=== PATIENT | male | born 1990 | race Two or more races ===

== ENCOUNTER 2023-08-31 01:02 | Emergency (ER) | payer OTHER ==
[~2023-08-31] VITALS: Ht 182.9 cm; Wt 88.6 kg
[~2023-08-31 01:02] MED LIST: BUPR150T12 PO
[2023-08-31] MEDS: NS 1,000 ML IV ONE ×2 (01:35→09:50)
[2023-08-31] MEDS: LORazepam 2 MG/ML 1ML VIAL IV STA ×2 (01:35→02:56)
[2023-08-31 01:57] LABS: BASO # 0.1 10^3/uL (0.0-0.2); BASO % 0.4 % (0.0-1.0); EOS % 0.2 % (0.0-3.0); HEMATOCRIT 50.8 % (42.0-52.0); HEMOGLOBIN 17.4 g/dl (13.5-17.5); LYMPH # 3.7 10^3/uL (1.5-5.0); LYMPH % 31.6 % (24.0-44.0); MEAN CORPUSCULAR HEMOGLOBIN 30.6 pg (27.0-33.0); MEAN CORPUSCULAR HGB CONC 34.3 g/dl (32.0-36.5); MEAN CORPUSCULAR VOLUME 89.3 fl (80.0-96.0); MONO # 0.7 10^3/uL (0.0-0.8); MONO % 5.6 % (2.0-8.0); NEUTROPHILS # 7.2 10^3/uL (1.5-8.5); NEUTROPHILS % 61.8 % (36.0-66.0); PLATELET COUNT, AUTOMATED 256 10^3/uL (150-450); RED BLOOD COUNT 5.69 10^6/uL (4.30-6.10); WHITE BLOOD COUNT 11.7 10^3/uL (4.0-10.0)
[2023-08-31 02:20] LABS: AMPHETAMINES LEVEL URINE NEGATIVE (NEGATIVE); BARBITURATES URINE NEGATIVE (NEGATIVE); BENZODIAZEPINES URINE NEGATIVE (NEGATIVE); CANNABINOIDS URINE NEGATIVE (NEGATIVE); COCAINE METABOLITE URINE NEGATIVE (NEGATIVE); METHADONE URINE NEGATIVE (NEGATIVE); OPIATES URINE NEGATIVE (NEGATIVE); PHENCYCLIDINE URINE NEGATIVE (NEGATIVE)
[2023-08-31 02:24] LABS: ALBUMIN 4.7 G/DL (3.2-5.2); ALKALINE PHOSPHATASE 118 U/L (46-116); ALT/SGPT 32 U/L (7.0-40); AST/SGOT 32 U/L (<34); BILIRUBIN,DIRECT < 0.1 MG/DL (<0.4); BILIRUBIN,TOTAL 0.2 MG/DL (0.3-1.2); BLOOD UREA NITROGEN 12 MG/DL (9-23); CALCIUM LEVEL 9.2 MG/DL (8.5-10.1); CARBON DIOXIDE LEVEL 24 MMOL/L (20-31); CHLORIDE LEVEL 109 MMOL/L (98-107); CREATININE FOR GFR 0.84 MG/DL (0.70-1.30); GLOMERULAR FILTRATION RATE > 60.0 (>60); GLUCOSE, FASTING 109 MG/DL (60-100); POTASSIUM SERUM 4.6 MMOL/L (3.5-5.1); SALICYLATE LEVEL < 3.0 MG/DL (<30); SODIUM LEVEL 143 MMOL/L (136-145); TOTAL PROTEIN 8.1 G/DL (5.7-8.2)
[2023-08-31 02:26] LABS: THYROID STIMULATING HORMONE 0.855 uIU/ML (0.55-4.78)
[2023-08-31 02:27] LABS: RSV AMPLIFICATION NEGATIVE (NEGATIVE)
[2023-08-31 02:33] LABS: CPK CREATINE PHOSPHOKINASE 390 U/L (46-171); ETHYL ALCOHOL (ETHANOL) 0.452 % (0.000-0.010)
[2023-08-31] MEDS: diphenhydrAMINE 50MG/ML VIAL IM ONE (03:30)
[2023-08-31] MEDS: LORazepam 2 MG/ML 1ML VIAL IM ONE (03:30)
[2023-08-31] MEDS: HALOPERIDOL 5MG/ML 1ML VIAL IM ONE (03:30)
[2023-08-31] MEDS: LORazepam 2 MG TAB PO PRN (09:24)
[2023-08-31] MEDS: FOLIC ACID 1MG TAB PO SCH (09:24)
[2023-08-31] MEDS: THIAMINE 100 MG TAB PO SCH (09:24)
[2023-08-31] MEDS: MULTIVITAMINS/MINERALS THERAP 1 TAB PO SCH (09:24)
[2023-08-31] MEDS ORDERED: HOME MED LIST COMPLETE! XX SCH (10:45)
[2023-08-31 11:00] VITALS: O2SAT 93
[2023-08-31 11:05] VITALS: BP 149/62
[2023-08-31 11:19] VITALS: TEMP 98.8
[2023-08-31] MEDS ORDERED: THIAMINE 100 MG TAB PO SCH (21:00)
[2023-09-01] MEDS ORDERED: FOLIC ACID 1MG TAB PO SCH (09:00)
[2023-09-01] MEDS ORDERED: MULTIVITAMINS/MINERALS THERAP 1 TAB PO SCH (09:00)
== END 2023-08-31 11:20 | disposition home or self-care (01) ==
LOC: M ED 01:02
DX: F10.129 Alcohol abuse with intoxication, unspecified (principal); I45.10 Unspecified right bundle-branch block; R00.0 Tachycardia, unspecified; Z79.899 Other long term (current) drug therapy
CPT/HCPCS: 80048; 80076; 80143; 80307; 82077; 82550; 84443; 85025; 87631; 93005; 93041; 94760; 96361; 96374; 96375; 99285; J2060

== ENCOUNTER 2023-09-05 09:46 | Day surgery (SDC) | payer OTHER ==
[~2023-09-05] VITALS: Ht 182.9 cm; Wt 91.6 kg
[2023-09-05] MEDS ORDERED: SUGAMMADEX SODIUM 500 MG/5 ML VIAL (BRIDION) As Ordered ONE (09:58)
[2023-09-05] MEDS ORDERED: propofoL 200 MG/20 ML VIAL As Ordered ONE (09:58)
[2023-09-05] MEDS ORDERED: MIDAZOLAM INJ 2MG/2ML VIAL As Ordered ONE (09:58)
[2023-09-05] MEDS ORDERED: ROCURONIUM BROMIDE 50MG/5ML VIAL As Ordered ONE (09:58)
[2023-09-05] MEDS ORDERED: LIDOCAINE 2% 100MG/5ML SDV (FOR ANES.) As Ordered ONE (09:58)
[2023-09-05] MEDS ORDERED: ONDANSETRON 4MG 2ML VIAL As Ordered ONE (09:58)
[2023-09-05] MEDS ORDERED: fentaNYL 100 MCG/2 ML INJECTION As Ordered ONE (09:58)
[2023-09-05] MEDS ORDERED: KETOROLAC 60MG 2ML VIAL As Ordered ONE (09:58)
[2023-09-05] MEDS: LR 1,000 ML IV SCH (10:30)
[2023-09-05] MEDS: ceFAZolin SOD 2 GM in IV 1 EA IV ONE (10:45)
[2023-09-05] MEDS: HEPARIN SOD (PORCINE) 5000UNITS/ML 1ML VIAL/SYRINGE SQ ONE (10:55)
[2023-09-05] MEDS ORDERED: HYDROmorphone HCL 2MG/ML 1ML VIAL As Ordered ONE (10:56)
[2023-09-05] MEDS ORDERED: ESMOLOL INJ 100MG/10ML VIAL As Ordered ONE (10:58)
[2023-09-05] MEDS ORDERED: KETAMINE HCL 200MG/20ML VIAL As Ordered ONE (10:59)
[2023-09-05] MEDS ORDERED: NITROGLYCERIN 2% OINT 1 GM *U/D* PKT As Ordered ONE (11:22)
[2023-09-05] MEDS ORDERED: fentaNYL 100 MCG/2 ML INJECTION IV PRN (13:20)
[2023-09-05] MEDS ORDERED: ONDANSETRON 4MG 2ML VIAL IV PRN (13:20)
[2023-09-05] MEDS ORDERED: LR 1,000 ML IV SCH (13:20)
[2023-09-05] MEDS: HYDROMORPHONE HCL 0.5 MG/ 0.5 ML SYRINGE IV PRN (13:37)
[2023-09-05] MEDS: oxyCODONE 5MG TAB PO PRN (13:38)
[2023-09-05] MEDS ORDERED: KETOROLAC 30 MG/ML 1ML VIAL As Ordered ONE (14:03)
[2023-09-05] MEDS: KETOROLAC 30 MG/ML 1ML VIAL IV ONE (14:04)
[2023-09-05] MEDS: ACETAMINOPHEN *IV* 1,000 MG in IV 1 EA IV ONE (14:11)
[2023-09-05 15:50] VITALS: BP 144/73; TEMP 97; O2SAT 96
== END 2023-09-05 16:37 | disposition home or self-care (01) ==
LOC: M SDC 09:46
PROVIDERS: ATTEND Surgery
DX: K40.20 Bilateral inguinal hernia, without obstruction or gangrene, not specified as recurrent (principal); Z79.899 Other long term (current) drug therapy; J45.909 Unspecified asthma, uncomplicated
CPT/HCPCS: 36415; 49650; 82077; C1781; G0480; J0131; J0665; J0690; J1100; J1170; J1805; J1885; J2250; J2405; J3010; S2900

== ENCOUNTER → 2023-09-23 | Outpatient (CLI) | payer OTHER | LOC: M OUTALCOH 07:34 | PROVIDERS: ATTEND Psychiatry & Neurology Psychiatry | DX: F10.20 Alcohol dependence, uncomplicated (principal) ==

== ENCOUNTER → 2023-11-02 | Outpatient (CLI) | payer OTHER | LOC: M OUTALCOH 08:32 | PROVIDERS: ATTEND Psychiatry & Neurology Psychiatry | DX: F10.20 Alcohol dependence, uncomplicated (principal) ==

== ENCOUNTER 2023-11-29 15:00 | Outpatient (RCR) | payer OTHER | END 2023-12-02 | LOC: M OUTALCOH 15:00 | PROVIDERS: ATTEND Psychiatry & Neurology Psychiatry | DX: F10.20 Alcohol dependence, uncomplicated (principal) ==

== ENCOUNTER 2023-12-27 09:52 | Outpatient (RCR) | payer OTHER | END 2024-01-01 | LOC: M OUTALCOH 09:52 | PROVIDERS: ATTEND Psychiatry & Neurology Child & Adolescent Psychiatry | DX: F10.20 Alcohol dependence, uncomplicated (principal) | CPT/HCPCS: 99203; G0397 ==

== ENCOUNTER 2024-01-25 10:48 | Outpatient (RCR) | payer OTHER ==
[2024-01-28] MEDS ORDERED: NALT50TA4 PO (16:31)
== END 2024-02-01 ==
LOC: M OUTALCOH 10:48
PROVIDERS: ATTEND Psychiatry & Neurology Child & Adolescent Psychiatry
DX: F10.20 Alcohol dependence, uncomplicated (principal)
CPT/HCPCS: G0397 ×2

== ENCOUNTER 2024-01-28 13:08 | Inpatient (IN) | payer OTHER ==
[~2024-01-28] VITALS: Ht 180.3 cm; Wt 90.2 kg
[2024-01-28] MEDS: fentaNYL 100 MCG/2 ML INJECTION IV ONE (13:41)
[2024-01-28] MEDS ORDERED: ISOVUE-370 76% 100ML VIAL As Ordered ONE (14:02)
[2024-01-28 14:22] LABS: BASO % 0.4 % (0.0-1.0); EOS # 0.1 10^3/uL (0.0-0.5); EOS % 1.7 % (0.0-3.0); HEMATOCRIT 45.3 % (42.0-52.0); HEMOGLOBIN 15.6 g/dl (13.5-17.5); LYMPH % 29.1 % (24.0-44.0); MEAN CORPUSCULAR HEMOGLOBIN 30.6 pg (27.0-33.0); MEAN CORPUSCULAR HGB CONC 34.4 g/dl (32.0-36.5); MONO # 0.5 10^3/uL (0.0-0.8); MONO % 7.5 % (2.0-8.0); NEUTROPHILS # 4.2 10^3/uL (1.5-8.5); NEUTROPHILS % 60.1 % (36.0-66.0); PLATELET COUNT, AUTOMATED 326 10^3/uL (150-450); RED BLOOD COUNT 5.09 10^6/uL (4.30-6.10); WHITE BLOOD COUNT 6.9 10^3/uL (4.0-10.0)
[2024-01-28] MEDS: MORPHINE 4 MG/ML 1ML VIAL IV ONE (14:35)
[2024-01-28 14:41] LABS: INR 1.04; PARTIAL THROMBOPLASTIN TIME 22.7 SECONDS (24.8-34.2); PROTHROMBIN TIME 13.3 SECONDS (12.5-14.5)
[2024-01-28 14:46] LABS: LIPASE 83 U/L (12-53)
[2024-01-28 14:47] LABS: AMYLASE 53 U/L (30-118); CPK CREATINE PHOSPHOKINASE 329 U/L (46-171)
[2024-01-28 14:48] LABS: ALBUMIN 4.3 G/DL (3.2-5.2); ALKALINE PHOSPHATASE 75 U/L (46-116); ALT/SGPT 62 U/L (7.0-40); AST/SGOT 53 U/L (<34); BILIRUBIN,DIRECT 0.1 MG/DL (<0.4); BILIRUBIN,TOTAL 0.4 MG/DL (0.3-1.2); BLOOD UREA NITROGEN 12 MG/DL (9-23); CALCIUM LEVEL 9.1 MG/DL (8.5-10.1); CARBON DIOXIDE LEVEL 27 MMOL/L (20-31); CHLORIDE LEVEL 108 MMOL/L (98-107); CK-MB VALUE MASS 1.7 NG/ML (<3.6); CREATININE FOR GFR 1.11 MG/DL (0.70-1.30); GLOMERULAR FILTRATION RATE > 60.0 (>60); GLUCOSE, FASTING 109 MG/DL (60-100); MB/CK RELATIVE INDEX 0.51 (< OR =4); POTASSIUM SERUM 3.9 MMOL/L (3.5-5.1); SODIUM LEVEL 143 MMOL/L (136-145); TOTAL PROTEIN 7.1 G/DL (5.7-8.2)
[2024-01-28 15:18] LABS: ETHYL ALCOHOL (ETHANOL) 0.305 % (0.000-0.010)
[2024-01-28] MEDS ORDERED: NALT50TA4 PO (16:31)
[2024-01-28] MEDS ORDERED: HOME MED LIST COMPLETE! XX SCH (16:35)
[2024-01-28] MEDS: LORazepam 2 MG TAB PO PRN (16:49)
[2024-01-28] MEDS: NS 1,000 ML IV SCH (16:50)
[2024-01-28] MEDS: THIAMINE 100 MG TAB PO SCH (17:36)
[2024-01-28 17:57] LABS: HEPATITIS B SURFACE ANTIGEN NEGATIVE (NEGATIVE)
[2024-01-28 18:17] LABS: HEPATITIS B CORE ANTIBODY IGM NEGATIVE (NEGATIVE); HEPATITIS C VIRUS ABY INDEX < 0.02 INDEX (<0.8)
[2024-01-28] MEDS ORDERED: PERCOCET 5MG/325MG TAB PO PRN (18:40)
[2024-01-28] MEDS ORDERED: ONDANSETRON 4MG 2ML VIAL IV PRN (18:40)
[2024-01-28] MEDS: PERCOCET 5MG/325MG TAB PO PRN (18:57)
[2024-01-28 19:16] VITALS: TEMP 98
[2024-01-28] MEDS: LR 1,000 ML IV SCH (19:16)
[2024-01-28] MEDS: KETOROLAC 30 MG/ML 1ML VIAL IV SCH (19:17)
[2024-01-28 20:00] VITALS: BP 138/65
[2024-01-28] MEDS: MORPHINE 4 MG/ML 1ML VIAL IV PRN (20:42)
[2024-01-28 20:46] VITALS: O2SAT 94
[2024-01-29] MEDS ORDERED: MULTIVITAMINS/MINERALS THERAP 1 TAB PO SCH (09:00)
[2024-01-29] MEDS ORDERED: ENOXAPARIN 40MG/0.4ML SYRINGE (J1650 PER 10MG) SC SCH (09:00)
[2024-01-29] MEDS ORDERED: FOLIC ACID 1MG TAB PO SCH (09:00)
[2024-01-29] MEDS ORDERED: PANTOPRAZOLE 40MG VIAL IV SCH (09:00)
== END 2024-01-28 20:50 | disposition left against medical advice (07) | DRG 135 ==
LOC: M ED 13:08 → M ED INP 18:38
PROVIDERS: ADMIT Surgery; ATTEND Surgery
DX: S27.321A Contusion of lung, unilateral, initial encounter (principal); S22.42XA Multiple fractures of ribs, left side, initial encounter for closed fracture; F10.129 Alcohol abuse with intoxication, unspecified; V28.49XA Other motorcycle driver injured in noncollision transport accident in traffic accident, initial encounter

== ENCOUNTER 2024-03-02 08:40 | Outpatient (RCR) | payer OTHER ==
[~2024-03-02 08:40] MED LIST changes: +NALT50TA4 PO
== END 2024-03-03 ==
LOC: M OUTALCOH 08:40
PROVIDERS: ATTEND Psychiatry & Neurology Psychiatry
DX: F10.20 Alcohol dependence, uncomplicated (principal)

== ENCOUNTER 2024-03-30 12:30 | Outpatient (RCR) | payer OTHER | END 2024-04-02 | LOC: M OUTALCOH 12:30 | PROVIDERS: ATTEND Psychiatry & Neurology Child & Adolescent Psychiatry | DX: F10.20 Alcohol dependence, uncomplicated (principal) ==

== ENCOUNTER 2024-05-01 09:54 | Outpatient (RCR) | payer OTHER | END 2024-05-03 | LOC: M OUTALCOH 09:54 | PROVIDERS: ATTEND Psychiatry & Neurology Psychiatry | DX: F10.20 Alcohol dependence, uncomplicated (principal) | CPT/HCPCS: G0397 ×4 ==

== ENCOUNTER 2024-05-29 09:50 | Outpatient (RCR) | payer OTHER | END 2024-06-02 | LOC: M OUTALCOH 09:50 | PROVIDERS: ATTEND Psychiatry & Neurology Psychiatry | DX: F10.20 Alcohol dependence, uncomplicated (principal) | CPT/HCPCS: G0397 ×4 ==

== ENCOUNTER → 2024-07-03 | Outpatient (RCR) | payer OTHER | LOC: M OUTALCOH 06-05 09:50 | PROVIDERS: ATTEND Psychiatry & Neurology Psychiatry | DX: F10.20 Alcohol dependence, uncomplicated (principal) ==

== ENCOUNTER 2024-07-31 08:50 | Outpatient (RCR) | payer OTHER | END 2024-08-03 | LOC: M OUTALCOH 08:50 | PROVIDERS: ATTEND Psychiatry & Neurology Psychiatry | DX: F10.20 Alcohol dependence, uncomplicated (principal) ==

== ENCOUNTER 2024-08-29 09:45 | Outpatient (RCR) | payer OTHER | END 2024-08-31 | LOC: M OUTALCOH 09:45 | PROVIDERS: ATTEND Psychiatry & Neurology Psychiatry | DX: F10.20 Alcohol dependence, uncomplicated (principal) | CPT/HCPCS: 90834; G0397 ==

== ENCOUNTER 2024-09-19 10:46 | Outpatient (RCR) | payer OTHER | END 2024-10-01 | LOC: M OUTALCOH 10:46 | PROVIDERS: ATTEND Psychiatry & Neurology Psychiatry | DX: F10.20 Alcohol dependence, uncomplicated (principal) ==

== ENCOUNTER 2025-01-02 09:12 | Outpatient (RCR) | payer OTHER | END 2025-01-31 | LOC: M OUTALCOH 09:12 | PROVIDERS: ATTEND Psychiatry & Neurology Psychiatry | DX: F10.20 Alcohol dependence, uncomplicated (principal) ==

== ENCOUNTER 2025-04-03 10:54 | Outpatient (RCR) | payer MEDICAID | END 2025-05-03 | LOC: M OUTALCOH 10:54 | PROVIDERS: ATTEND Psychiatry & Neurology Psychiatry | DX: F10.20 Alcohol dependence, uncomplicated (principal) ==